=== PATIENT | female | born 1960 | race African-American/Black ===

== ENCOUNTER 2017-05-25 19:39 | Emergency (ER) | payer OTHER, MEDICAID ==
[2017-05-25 19:45] VITALS: BMI 23.6
--- NOTE | 2017-05-25 21:38 | DR.CP ---
HPI - PCP Primary Care Physician: evelyn - Complaint Chief Complaint:: "I AM HAVING PAIN ON MY RIGHT SIDE- POINTING TO CHEST, SHARP PAINS, AND IT GOES INWARD. I HAVE BEEN HAVING THIS FOR A WHILE LIKE 3 WKS. AND DEALING WITH IT BUT IT IS GETTING WORSE. " - Reviewed Nurses Notes Review: Yes - Source History Provided: Patient - Mode of Arrival Mode of Arrival: Ambulatory - Timing Onset of Chief Complaint: 05/04/17 PMH - PMH Past Medical History: Yes Past Medical History: Anxiety, Depression Past Medical History Comment: BIPOLAR Past Surgical History: Yes Surgical History: Appendectomy, , Hysterectomy - Family History History of Family Medical Conditions: Yes Family Medical History: Cancer - Social History Does patient currently use any type of tobacco product: No Have you used tobacco products in the last 12 months: No Type of Tobacco Use: None Does any household member use tobacco: No Alcohol Use: None Do you use any recreational Drugs:: No Lives With: Spouse Lives Where: Home - infectious screening Have you traveled outside the country in the last 6 months?: No Isolation: Standard PE - Vitals Vitals: Temperature 97.8 F Pulse Rate 105 Respiratory Rate 20 Blood Pressure 116/61 O2 Sat by Pulse Oximetry 100 ROR - Labs Reviewed Result Diagrams: 05/25/17 21:45 05/25/17 21:45 Laboratory: WBC 4.7 X10^3/uL (3.6-10.0) 05/25/17 21:45 RBC 4.47 X10^6/uL (3.5-5.4) 05/25/17 21:45 Hgb 11.8 g/dL (12.0-16.0) L 05/25/17 21:45 Hct 36.0 % (36.0-47.0) 05/25/17 21:45 MCV 80.6 fL (80.0-100.0) 05/25/17 21:45 MCH 26.3 pg (27.0-34.0) L 05/25/17 21:45 MCHC 32.7 g/dL (33.0-35.0) L 05/25/17 21:45 RDW 13.3 % (11.6-16.5) 05/25/17 21:45 Plt Count 232 X10^3/uL (150.0-450.0) 05/25/17 21:45 MPV 7.8 fL (7.4-11.0) 05/25/17 21:45 Neut % 32.6 % (42.0-75.0) L 05/25/17 21:45 Lymph % 55.8 % (21.0-51.0) H 05/25/17 21:45 [place] % 9.4 % (0.0-13.0) 05/25/17 21:45 Eos % 1.2 % (0.9-2.9) 05/25/17 21:45 Baso % 1.0 % (0.2-1.0) 05/25/17 21:45 Neut # 1.5 x10^3/uL (2.2-4.8) L 05/25/17 21:45 Lymph # 2.6 X10^3/uL (1.3-2.9) 05/25/17 21:45 [place] # 0.4 x10^3/uL (0.3-0.8) 05/25/17 21:45 Eos # 0.1 x10^3/uL (0.0-0.2) 05/25/17 21:45 Baso # 0.0 X10^3/uL (0.0-0.1) 05/25/17 21:45 Absolute Nucleated RBC 0.0 /100WBC 05/25/17 21:45 D-Dimer 123 ng/mL (0-400) 05/25/17 21:45 Sodium 139 mmol/L (136-145) 05/25/17 21:45 Corrected Sodium TNP 05/25/17 21:45 Potassium 4.0 mmol/L (3.5-5.1) 05/25/17 21:45 Chloride 104 mmol/L (98-107) 05/25/17 21:45 Carbon Dioxide 31.5 mmol/L (21-32) 05/25/17 21:45 BUN 8 mg/dL (7-18) 05/25/17 21:45 Creatinine 0.97 mg/dL (0.55-1.02) 05/25/17 21:45 Est GFR (MDRD) Af Amer > 60 (>60) 05/25/17 21:45 Est GFR (MDRD) Non-Af > 60 (>60) 05/25/17 21:45 Glucose 105 mg/dL (65-99) H 05/25/17 21:45 Calcium 8.9 mg/dL (8.5-10.1) 05/25/17 21:45 Corrected Calcium TNP 05/25/17 21:45 Total Bilirubin 0.10 mg/dL (0.2-1.0) L 05/25/17 21:45 AST 22 Units/L (15-37) 05/25/17 21:45 ALT 29 Units/L (12-78) 05/25/17 21:45 Alkaline Phosphatase 68 Units/L (46-116) 05/25/17 21:45 Creatine Kinase 83 Units/L (26-192) 05/25/17 21:45 CK-MB (CK-2) < 1.0 ng/mL (0-4.0) 05/25/17 21:45 CK/CKMB % Calc 1.2 % (<4) 05/25/17 21:45 Troponin I < 0.02 ng/mL (0-1.5) 05/25/17 21:45 Total Protein 7.4 g/dL (6.4-8.2) 05/25/17 21:45 Albumin 3.7 g/dL (3.4-5.0) 05/25/17 21:45 Globulin 3.7 g/dL (2.5-4.5) 05/25/17 21:45 Albumin/Globulin Ratio 1.0 Ratio (1.1-2.1) L 05/25/17 21:45 - Discharge Plan Condition: Stable Prescriptions: Ketorolac Tromethamine [Toradol Tab] 10 mg PO Q8H PRN #15 tab PRN Reason: Pain Promethazine HCl [PHENERGAN TAB 25 MG *] 25 mg PO Q6H PRN #15 tab PRN Reason: Nausea/Vomiting - Follow ups/Referrals Follow ups/Referrals: [facility],None [Primary Care Provider] - 1 day - Instructions Instructions: Chest Pain Observation, Nausea and Vomiting, Adult, [id number] Additional Instructions: RETURN TO ED IF WORSE.
--- NOTE | 2017-05-25 21:52 | RAD ---
Chest, one view Indication: Chest pain Comparison: 08/20/2015 Findings: Heart size is normal. No focal consolidation, effusion or pneumothorax is identified. There is no acute osseous abnormality. Impression: No acute cardiopulmonary abnormality. Reported By:
[2017-05-25 22:04] LABS: EOSINOPHILS # (AUTO) 0.1 x10^3/uL (0.0-0.2); EOSINOPHILS % (AUTO) 1.2 % (0.9-2.9); HEMOGLOBIN 11.8 g/dL (12.0-16.0); LYMPHOCYTES # (AUTO) 2.6 X10^3/uL (1.3-2.9); LYMPHOCYTES % (AUTO) 55.8 % (21.0-51.0); MEAN CORPUSCULAR HEMOGLOBIN 26.3 pg (27.0-34.0); MEAN CORPUSCULAR HGB CONC 32.7 g/dL (33.0-35.0); MEAN CORPUSCULAR VOLUME 80.6 fL (80.0-100.0); MEAN PLATELET VOLUME 7.8 fL (7.4-11.0); MONOCYTES # (AUTO) 0.4 x10^3/uL (0.3-0.8); MONOCYTES % (AUTO) 9.4 % (0.0-13.0); NEUTROPHILS # (AUTO) 1.5 x10^3/uL (2.2-4.8); NEUTROPHILS % (AUTO) 32.6 % (42.0-75.0); PLATELET COUNT 232 X10^3/uL (150.0-450.0); RED BLOOD COUNT 4.47 X10^6/uL (3.5-5.4); RED CELL DISTRIBUTION WIDTH 13.3 % (11.6-16.5); WHITE BLOOD COUNT 4.7 X10^3/uL (3.6-10.0)
[2017-05-25 22:21] LABS: BLOOD UREA NITROGEN 8 mg/dL (7-18); CALCIUM 8.9 mg/dL (8.5-10.1); CARBON DIOXIDE 31.5 mmol/L (21-32); CHLORIDE 104 mmol/L (98-107); CREATININE 0.97 mg/dL (0.55-1.02); SODIUM 139 mmol/L (136-145); TROPONIN I < 0.02 ng/mL (0-1.5); eGFR BLACK RACES > 60 (>60); eGFR NON BLACK RACES > 60 (>60)
[2017-05-25 22:36] LABS: ALANINE AMINOTRANSFERASE 29 Units/L (12-78); ALBUMIN 3.7 g/dL (3.4-5.0); ALKALINE PHOSPHATASE 68 Units/L (46-116); ASPARTATE AMINO TRANSFERASE 22 Units/L (15-37); CKMB % 1.2 % (<4); CREATINE KINASE 83 Units/L (26-192); CREATINE KINASE MB < 1.0 ng/mL (0-4.0); TOTAL PROTEIN 7.4 g/dL (6.4-8.2)
[2017-05-25] MEDS ORDERED: TORADOL 60 MG VIAL ONE (23:27)
[2017-05-25] MEDS ORDERED: TORADOL 60 MG VIAL IM ONE (23:28)
[2017-05-25] MEDS ORDERED: PHENERGAN INJ 25 MG ONE (23:28)
[2017-05-25] MEDS ORDERED: PHENERGAN INJ 25 MG IM ONE (23:28)
[2017-05-25 23:54] VITALS: BP 132/68
== END 2017-05-25 23:58 | disposition home or self-care (01) ==
LOC: ER 19:48
DX: R07.89 Other chest pain (principal); R11.2 Nausea with vomiting, unspecified
CPT/HCPCS: 36415; 71045; 80053; 82550; 82553; 84484; 85025; 85378; 93005; 93010; 96372; 99282; 99283; J1885; J2550

== ENCOUNTER 2017-09-13 12:19 | Day surgery (SDC) | payer OTHER, MEDICAID ==
[2017-09-13] MEDS ORDERED: KENALOG INJ 40 MG IM ONE (13:24)
[2017-09-13] MEDS ORDERED: XYLOCAINE 1 % (PLAIN) ONE (13:24)
[2017-09-13] MEDS ORDERED: MARCAINE 0.25% INJ ONE (13:25)
--- NOTE | 2017-09-13 13:42 | DR.UPDATE ---
H&P Update History and Physical Update: History and Physical reviewed and patient examined. Changes noted: NO Yes with the following:Agree with H&P from Dr Jones. will proceed with leandro left, either L3-4, or L4-5
[2017-09-13 14:11] VITALS: BP 109/69
== END 2017-09-13 14:10 | disposition home or self-care (01) | DRG 552 ==
LOC: SURG1 12:19
PROVIDERS: ATTEND Orthopaedic Surgery
PROC: 3E0R3BZ Introduction of Anesthetic Agent into Spinal Canal, Percutaneous Approach (ICD-10-PCS; 2017-09-13)
PROC: 3E0R33Z Introduction of Anti-inflammatory into Spinal Canal, Percutaneous Approach (ICD-10-PCS; principal; 2017-09-13 12:45)
DX: M51.36 Other intervertebral disc degeneration, lumbar region (principal)
CPT/HCPCS: 62323; 76000; A4222; S0020; J2001; J3301